=== PATIENT | female | born 1955 | race Two or more races ===

== ENCOUNTER 2024-09-24 14:11 | Emergency (ER) | payer OTHER ==
[~2024-09-24] VITALS: Ht 160 cm; Wt 100.2 kg
[2024-09-24] MEDS ORDERED: CONZIP300 MG PO (14:19)
[2024-09-24] MEDS ORDERED: HUMALOG MI100 UNIT/2 SQ (14:20)
[2024-09-24] MEDS ORDERED: JARDIANCE25 MG (14:21)
[2024-09-24] MEDS ORDERED: NEURONTIN600 M1 (14:21)
[2024-09-24] MEDS ORDERED: AVAPRO300 MG (14:29)
[2024-09-24] MEDS ORDERED: EZALLOR SPRINKL20 MG (14:31)
[2024-09-24] MEDS ORDERED: FAMOTIDINE/PF 20 MG/2 ML VIAL IV ONE (15:15)
[2024-09-24] MEDS ORDERED: 0.9 % SODIUM CHLORIDE 500 ML IV ONE ×2 (15:15→18:00)
[2024-09-24] MEDS ORDERED: ONDANSETRON HCL 2 MG/ML VIAL IV ONE (15:15)
[2024-09-24] MEDS ORDERED: MORPHINE SULFATE 2 MG/ML CARTRIDGE IV ONE (15:15)
[2024-09-24] MEDS ORDERED: FAMOTIDINE/PF 20 MG/2 ML VIAL ONE (15:35)
[2024-09-24] MEDS ORDERED: ONDANSETRON HCL 2 MG/ML VIAL ONE (15:35)
[2024-09-24 16:04] LABS: BASO % 0.4 % (0.1-1.2); EOS # 0.21 (0.04-0.54); EOS % 1.7 % (0.7-7.0); HEMATOCRIT 30.7 % (34.1-44.9); HEMOGLOBIN 9.8 g/dL (11.2-15.7); MEAN CORPUSCULAR HEMOGLOBIN 29.2 pg (25.6-32.2); MONO # 0.72 (0.24-0.82); MONO % 5.7 % (4.7-12.5); NEUT # 9.22 (1.56-6.13); NEUT % 72.9 % (34.0-71.1); PLATELET COUNT 399 K/uL (163-369); RED BLOOD COUNT 3.36 M/uL (3.93-5.22); RED CELL DISTRIBUTION WIDTH 14.6 % (11.6-14.4)
[2024-09-24 16:32] LABS: ALBUMIN 2.8 gm/dL (3.4-5.0); BILIRUBIN TOTAL 0.25 mg/dL (0.3-1.2); CALCIUM 9.5 mg/dL (8.5-10.1); CREATININE SERUM 1.9 mg/dL (0.55-1.02); GFR 26.29; GLOBULINA 5.3 G/DL (2.4-3.5); POTASSIUM 5.02 mEq/L (3.5-5.1); TOTAL PROTEIN 8.1 gm/dL (6.4-8.2)
[2024-09-24 17:42] LABS: URINE APPEARANCE Clear; URINE BILIRRUBIN Negative (NEGATIVE); URINE BLOOD Moderate; URINE COLOR Yellow; URINE KETONE Negative (NEGATIVE); URINE LEUKOCYTE Trace; URINE NITRATE Negative; URINE UROBILINOGEN 0.2 E.U./dl
[2024-09-24 17:43] LABS: URINE BACTERIA 904.4 uL (0.0-1933); URINE CAST 0.58 uL (0.0-1.40); URINE EPITHELIAL CELLS 31.9 uL (0.0-38.8); URINE GLUCOSE >=1000 MG/DL (NEGATIVE); URINE PROTEIN 300 (NEGATIVE); URINE RBC 109.7 uL (0.0-20.8); URINE WBC 86.2 uL (0.0-23.2)
[2024-09-24] MEDS ORDERED: TAMSULOSIN HCL 0.4 MG CAP PO ONE ×2 (18:00→18:12)
[2024-09-24] MEDS ORDERED: MORPHINE SULFATE 4 MG/ML VIAL IV ONE (18:15)
== END 2024-09-24 22:02 | disposition home or self-care (01) ==
LOC: ER 14:11
PROVIDERS: Emergency Medicine
DX: R10.9 Unspecified abdominal pain (principal); E11.9 Type 2 diabetes mellitus without complications; Z79.4 Long term (current) use of insulin; M79.7 Fibromyalgia; E78.00 Pure hypercholesterolemia, unspecified; I10 Essential (primary) hypertension; N20.0 Calculus of kidney; I12.9 Hypertensive chronic kidney disease with stage 1 through stage 4 chronic kidney disease, or unspecified chronic kidney disease; E11.22 Type 2 diabetes mellitus with diabetic chronic kidney disease; N18.30 Chronic kidney disease, stage 3 unspecified
CPT/HCPCS: 74177; 96365; 99284; J2270; J3490; J7042; Q9965